=== PATIENT | male | born 1980 | race Hispanic/Latino ===

== ENCOUNTER 2023-12-03 12:41 | Observation (INO) ==
[2023-12-03] MEDS: 0.9 % SODIUM CHLORIDE 1,000 ML IV ONE (13:18)
[2023-12-03] MEDS: KETOROLAC 30 MG/ML VIAL IV ONE (13:18)
[2023-12-03] MEDS: morphine 10 MG/ML VIAL IV ONE (13:18)
[2023-12-03] MEDS: ONDANSETRON 4 MG/2 ML VIAL IV ONE (13:20)
[2023-12-03] MEDS: HYDROmorphone 1 MG/ML SYRINGE IV ONE ×3 (13:57→15:02)
[2023-12-03 14:14] LABS: Basophils # (Auto) 0.04 K/mcL (0.00-0.30); Basophils % (Auto) 0.6 % (0.0-2.0); Eosinophils # (Auto) 0.18 K/mcL (0.00-0.70); Eosinophils % (Auto) 2.5 % (0.0-7.0); Hematocrit 44.1 % (40.1-51.0); Hemoglobin 14.1 g/dL (13.7-17.5); Lymphocytes # (Auto) 2.26 K/mcL (1.50-4.80); Lymphocytes % (Auto) 31.4 % (15.5-49.0); Mean Cell Volume 84.6 fL (80.0-100.0); Mean Platelet Volume 10.1 fL (8.8-12.5); Monocytes # (Auto) 0.61 K/mcL (0.10-0.90); Monocytes % (Auto) 8.5 % (1.0-12.0); Neutrophils % (Auto) 56.9 % (38.0-78.0); Platelet Count 172 K/mcL (140-440); RBC 5.21 M/mcL (4.63-6.08); Red Cell Distribution Width 14.7 % (11.5-14.5); WBC 7.2 K/mcL (4.5-11.0)
[2023-12-03 14:45] LABS: ALT/SGPT 61 U/L (<40); AST/SGOT 63 U/L (<40); Albumin 4.3 gm/dL (3.2-5.2); Albumin/Globulin Ratio 1.2 (1.0-2.3); Alkaline Phosphatase 99 U/L (39-117); Bilirubin,Total 0.4 mg/dL (0.1-1.0); Blood Urea Nitrogen 13 mg/dL (6-20); Calcium 9.1 mg/dL (8.6-10.4); Carbon Dioxide 23 mmol/L (22-30); Chloride 103 mmol/L (96-108); Globulin 3.7 gm/dL (2.2-3.7); Glomerular Filtration Rate 105; Glucose 97 mg/dL (70-105); Potassium 3.9 mmol/L (3.3-5.1); Sodium 138 mmol/L (133-145)
[2023-12-03] MEDS ORDERED: MAGNESIUM HYDROXIDE 30 ML ORAL.SUSP PO PRN (16:43)
[2023-12-03] MEDS ORDERED: MAG HYDROX/AL HYDROX/SIMETH 30 ML ORAL.SUSP PO PRN (16:43)
[2023-12-03] MEDS ORDERED: morphine 4 MG/ML VIAL IV PRN (16:43)
[2023-12-03] MEDS: DEXTROSE 5%-1/2NS W/20MEQ KCL 1,000 ML IV SCH (16:54)
[2023-12-03] MEDS ORDERED: ALBUTEROL SULFATE 60 PUFF INHALER INH PRN (17:23)
[2023-12-03] MEDS ORDERED: LORATADINE 10 MG TABLET PO PRN (17:23)
[2023-12-03] MEDS ORDERED: MONTELUKAST 10 MG TABLET PO PRN (17:23)
[2023-12-03 18:38] LABS: ALT/SGPT 61 U/L (<40); AST/SGOT 63 U/L (<40); Albumin 4.3 gm/dL (3.2-5.2); Albumin/Globulin Ratio 1.2 (1.0-2.3); Alkaline Phosphatase 100 U/L (39-117); Bilirubin,Total 0.5 mg/dL (0.1-1.0); Blood Urea Nitrogen 12 mg/dL (6-20); Calcium 8.8 mg/dL (8.6-10.4); Carbon Dioxide 23 mmol/L (22-30); Chloride 102 mmol/L (96-108); Globulin 3.7 gm/dL (2.2-3.7); Glomerular Filtration Rate 92; Glucose 141 mg/dL (70-105); Sodium 137 mmol/L (133-145)
[2023-12-03] MEDS: ONDANSETRON 4 MG/2 ML VIAL ONE (18:53)
[2023-12-03] MEDS: ceFAZolin 2 GM in DEXTROSE 5% IN WATER 50 ML IV SCH (19:02)
[2023-12-03] MEDS: HYDROmorphone 0.5 MG/0.5 ML SYRINGE IV PRN (19:12)
[2023-12-03] MEDS: ONDANSETRON 4 MG/2 ML VIAL IV PRN (19:13)
[2023-12-03] MEDS: 0.9 % SODIUM CHLORIDE 10 ML SYRINGE IV SCH (20:31)
[2023-12-03] MEDS: MOMETASONE INH SCH (20:32)
[2023-12-03] MEDS ORDERED: CPAP INH SCH (21:00)
[2023-12-03] MEDS ORDERED: OXYGEN CONCENTRATOR INH SCH (21:00)
[2023-12-03] MEDS: oxyCODONE IR 5 MG TABLET PO PRN (21:25)
[2023-12-03 21:40] LABS: Appearance,Urine Clear (Clear); Bacteria,Urine Few /hpf (0); Bilirubin,Urine Negative (Negative); Calcium Oxalate Crystals,Urine Few /hpf; Color,Urine Yellow; Culture Indicated,Urine Yes; Glucose,Urine (UA) Negative (Negative); Ketones,Urine Negative (Negative); Leukocyte Esterase,Urine Negative /uL (Negative); Mucus,Urine Few /hpf; Nitrate,Urine Negative (Negative); Protein,Urine Negative (Negative); Specific Gravity,Urine 1.025 (1.000-1.035); Urine Blood Moderate ery/mcL (Negative); Urine RBC 9 /hpf (0-3); Urine Squamous Epithelial Cell 0 /hpf (0-4); Urine WBC 2 /hpf (0-4); Urobilinogen,Urine Normal
[2023-12-03] MEDS: oxyCODONE IR 5 MG TABLET PO ONE (22:09)
[2023-12-04] MEDS: MELOXICAM 7.5 MG TABLET PO SCH (10:40)
[2023-12-04] MEDS: FLUTICASONE PROPIONATE SPRAY.NAS NS SCH (10:40)
[2023-12-04] MEDS: TAMSULOSIN 0.4 MG CAPSULE PO SCH (10:40)
[2023-12-04] MEDS: Ipratropium-Albuterol [Combivent Respimat] 20-100 INH SCH (10:41)
[2023-12-04] MEDS: ceFAZolin 3 GM in DEXTROSE 5% IN WATER 50 ML IV SCH (10:54)
[2023-12-04] MEDS ORDERED: PROPOFOL 200 MG/20 ML VIAL IV ONE ×2 (11:01→11:46)
[2023-12-04] MEDS ORDERED: fentaNYL 100 MCG/2 ML VIAL ONE (11:03)
[2023-12-04] MEDS ORDERED: SUCCINYLCHOLINE 200 MG/10 ML VIAL IV ONE (11:03)
[2023-12-04] MEDS ORDERED: ROCURONIUM 10 MG/ML ML IV ONE (11:03)
[2023-12-04] MEDS: GENTAMICIN SULFATE IV SCH (11:24)
[2023-12-04] MEDS: SODIUM CHLORIDE 0.9% IV SCH (11:24)
[2023-12-04] MEDS: IOVERSOL 50 ML VIAL IJ ONE (11:31)
[2023-12-04] MEDS ORDERED: SUGAMMADEX SODIUM 200 MG/2 ML VIAL IV ONE (11:42)
[2023-12-04] MEDS ORDERED: ONDANSETRON 4 MG/2 ML VIAL ONE (11:43)
[2023-12-04] MEDS ORDERED: fentaNYL 100 MCG/2 ML VIAL IV PRN (11:52)
[2023-12-04] MEDS ORDERED: IPRATROPIUM/ALBUTEROL 3 ML AMPUL.NEB NEB PRN (11:52)
[2023-12-04] MEDS ORDERED: ONDANSETRON 4 MG/2 ML VIAL IV PRN (11:52)
[2023-12-04] MEDS: LIDOCAINE 2% URO-JET 10 ML JEL.PF.APP UR ONE (11:56)
[2023-12-04] MEDS ORDERED: HYDROcodone/APAP 5/325MG TABLET PO PRN (11:57)
[2023-12-04] MEDS ORDERED: ePHEDrine 50 MG/5 ML SYRINGE (ANEST) IV ONE (12:23)
[2023-12-04] MEDS ORDERED: 0.9 % SODIUM CHLORIDE 10 ML SYRINGE IV SCH (14:00)
[2023-12-18 09:11] LABS: Calculus Weight 10 mg
== END 2023-12-04 14:35 | disposition home or self-care (01) ==
LOC: ED 12:41 → MEDSUR 12:41
PROVIDERS: ADMIT Urology; ATTEND Urology